=== PATIENT | male | born 1935 | race Two or more races ===

== ENCOUNTER → 2022-12-15 | Emergency (ER) | payer OTHER ==
[~2022-12-15] VITALS: Ht 157.5 cm; Wt 72.6 kg
[~2022-12-15] MED LIST: AMLODIPINE BESYL5 MG PO; METOPROLOL SUCC25 MG PO; SIMVASTATIN20 MG PO; SYNTHROID75 MCG PO
== END | disposition home or self-care (01) ==
LOC: ER 08:15
DX: N39.0 Urinary tract infection, site not specified (principal); B96.4 Proteus (mirabilis) (morganii) as the cause of diseases classified elsewhere

== ENCOUNTER 2023-08-09 10:32 | Emergency (ER) | payer OTHER ==
[~2023-08-09] VITALS: Ht 157.5 cm; Wt 68.0 kg
[2023-08-09 12:09] LABS: HEMATOCRIT 52.5 % (39.0-48.0); MEAN CORPUSCULAR HEMOGLOBIN 31.8 pg (27.00-32.0); MEAN CORPUSCULAR HGB CONC 34.2 g/dl (32.0-36.0); PLATELET COUNT 171 K/uL (150-450); RED BLOOD COUNT 5.65 M/uL (4.00-6.00); RED CELL DISTRIBUTION WIDTH 14.1 % (11.5-14.5)
[2023-08-09 12:35] LABS: CALCIUM 9.8 mg/dL (8.5-10.1); CREATININE SERUM 1.38 mg/dL (0.70-1.30); GFR 48.63; POTASSIUM 4.19 mEq/L (3.5-5.1)
== END 2023-08-09 14:00 | disposition home or self-care (01) ==
LOC: ER 10:32
PROVIDERS: General Practice
DX: R42 Dizziness and giddiness (principal); I10 Essential (primary) hypertension; R25.2 Cramp and spasm
CPT/HCPCS: 36415; 72040; 96372; 99284; J2360